=== PATIENT | female | born 1935 | race Caucasian/White ===

== ENCOUNTER 2016-05-15 10:07 | Emergency (ER) | payer OTHER ==
[~2016-05-15 10:07] MED LIST: ACETAMINOPHEN500 MG PO; ALENDRONATE SOD70 MG PO; CALCIUM W/VIT D PO; HYDROCHLOROTHIA25 MG PO; LEVOTHYROXINE100 MCG PO; LISINOPRIL10 MG PO; MAGNESIUM400 M1 PO; OMEPRAZOLE20 M1 PO; SIMVASTATIN40 MG PO; ST JOHNS WORT PO; VITAMIN B COMPLE1 PO; VITAMIN D-31000 UNIT PO
--- NOTE | 2016-05-15 10:55 | DIAGNOSTIC IMAGING REPORT ---
PROCEDURE: CT HEAD WITHOUT CONTRAST INDICATION: DIZZINESS TECHNIQUE: Axial CT images were acquired through the head. Coronal and sagittal reformations were created. COMPARISON: None. FINDINGS: Mild cerebral cortical atrophy. Moderate hypodensity in the periventricular and subcortical white matter. No intracranial hemorrhage or extraaxial fluid collections. Ventricles are normal in size, shape and position. There is no mass, mass effect or midline shift. The calvarium is intact. The paranasal sinuses and mastoid air cells are normally aerated. The extracranial soft tissues and orbits are normal. IMPRESSION: 1. No CT evidence of acute intracranial process. 2. Age related involutional and white matter changes. 3. Findings discussed with Dr. Riley at 10:[address] scans at this facility use dose modulation, iterative reconstruction, and/or weight-based dosing when appropriate to reduce radiation dose to as low as reasonably achievable.
--- NOTE | 2016-05-15 13:16 | ED CLINICAL REPORT ---
Clinical Report - Physicians/Mid Levels [facility] [address] [place] [address] 05/15/2016 10:09 Patient: ERICA NEUMANN Time Seen: 1010. Arrived- By ambulance. Historian- patient, EMS personnel and family. HISTORY OF PRESENT ILLNESS Chief Complaint: DIZZINESS and NEAR-SYNCOPE. Severity described as moderate at its maximum. When seen in the E.D., it was almost gone. Modifying factors- worsened by standing up. (sitting or laying down helps). Not described as a sense of rotation, falling or confusion. Not described as feeling off balance, faint or weak all over. Described as a sense of movement and feeling light-headed. This started at about 0400 and is still present but is better now. No nausea, vomiting, hearing loss, tinnitus or ear pain. (Pt states she started Sertraline about 3 days ago, and wonders if this is the cause of her sx.). Similar symptoms previously: None. Recent medical care: The patient was seen recently at another facility in a clinic. REVIEW OF SYSTEMS No headache, double vision, weakness, fainting episodes or head injury. No chest pain, palpitations, black stools, numbness or bloody stools. No fever, sore throat, cough, difficulty breathing or abdominal pain. No diarrhea, difficulty with urination, skin rash, enlarged lymph nodes or chills. No joint pain. No difficulty walking. All systems otherwise negative, except as recorded above. PAST HISTORY Problems: Gerd. Degenerative Joint Disease. Depression. Memory impairment. Elevated Cholesterol. Thyroid Disease. Additional Surgeries: Arm fracture . Hysterectomy. Medications: [facility] Mood Relaxer Oral. Aspirin EC Oral. Vit E-Vit C-Beta Carotene Oral. Magnesium Chloride Oral. Calcium + D Oral. Multi Complete Oral. Levothyroxine Sodium Oral. Simvastatin Oral (Tablet 40 mg) 1 tablet, daily. Omeprazole Oral 20 mg, daily. Lisinopril Oral (Tablet 10 mg) 1 tablet, daily. HCTZ. Alendronate Sodium Oral (Tablet Effervescent 70 mg) 1 tablet. Sertraline HCl Oral (Tablet 25 mg) 1 tablet, daily. Allergies: Darvon. SOCIAL HISTORY Never smoker. No alcohol use or drug use. ADDITIONAL NOTES The nursing notes have been reviewed. PHYSICAL EXAM Vital Signs: 05/15/2016 10:11 BP: 156/87. HR: 80. RR: 18. O2 saturation: 98%. Temp: 98.0 F. Have been reviewed. Appearance: Alert. No acute distress. Eyes: Pupils equal, round and reactive to light. No nystagmus. Extraocular movements normal. ENT: Normal ENT inspection. Moist mucous membranes. Neck: Normal inspection. CVS: Normal heart rate and rhythm. Heart sounds normal. Pulses normal. Respiratory: No respiratory distress. Breath sounds normal. Abdomen: Soft and nontender. Back: Normal inspection. No CVA tenderness. Skin: Skin warm and dry. Normal skin color. No rash. Normal skin turgor. Extremities: Extremities exhibit normal ROM. No lower extremity edema. Neuro: Alert. Oriented X 3. Mood/affect normal. Speech normal. Cranial nerves normal (as tested). No cerebellar findings. No motor deficit. No sensory deficit. LABS, X-RAYS, AND EKG EKG: EKG time: (1031). Normal sinus rhythm. Rate: 69. Normal P waves. Normal SHIVANI. Normal QRS complex. Normal axis. Normal QT and QTc. Non-specific ST segment / T wave abnormalities. Prior EKG unavailable. The study has been interpreted contemporaneously by me. The study has been independently viewed by me. The EKG appears to be a good tracing. Rhythm Strip #1: Time: (1028). Rate= 68. Normal sinus rhythm. Regular rhythm. Narrow QRS complexes. No ectopy. Conduction normal. Normal ST segments and T waves. The study was interpreted by me. CT Head: No acute changes. No bony abnormalities, no hemorrhage, no intracranial mass, no midline shift and no hydrocephalus. No atrophy. Head CT performed without contrast. The study was independently viewed by me, interpreted by the radiologist and contemporaneously by me and discussed with the radiologist. Prior studies were not available for comparison. Laboratory Tests: UA-Culture if indicated: (YESSENIA: 05/15/2016 12:05) ( MsgRcvd 05/15/2016 12:39) Final results Test Result Flag Units (Reference) URINE COLOR YELLOW URINE APPEARANCE CLEAR URINE GLUCOSE NEGATIVE (NEGATIVE) URINE BILIRUBIN NEGATIVE (NEGATIVE) URINE KETONE NEGATIVE (NEGATIVE) URINE SPECIFIC GRAVITY 1.010 (1.010-1.030) URINE PH 7.5 (5.0-8.0) URINE PROTEIN NEGATIVE (NEGATIVE) URINE UROBILINOGEN 0.2 EU/dL (0.2-1.0) URINE NITRITE NEGATIVE (NEGATIVE) URINE BLOOD TRACE-INTACT (NEGATIVE) URINE LEUK ESTERASE NEGATIVE (NEGATIVE) URINE RBC NONE SEEN rbc/hpf (0-1) URINE WBC 0-1 wbc/hpf (0-1) URINE EPITHELIAL CELLS NONE SEEN EPI/hpf (0-5) URINE BACTERIA NONE SEEN (NONE SEEN) URINE COMMENT CULT NOT INDICATED URINE CULTURES ARE SET-UP BASED ON THE FOLLOWING CRITERIA:POSITIVE NITRITEPOSITIVE LEUKOCYTE ESTERASEGREATER THAN 10 WHITE BLOOD CELLSMODERATE (2+) OR GREATER BACTERIA CBC w Diff: (YESSENIA: 05/15/2016 10:30) ( [facility] 05/15/2016 10:56) Final results Test Result Flag Units (Reference) WHITE BLOOD COUNT 4.3 L K/uL (4.5-11.5) RED BLOOD COUNT 4.03 M/uL (4.00-5.20) HEMOGLOBIN 12.6 gm/dL (12.0-16.0) HEMATOCRIT 37.7 % (36.0-46.0) MEAN CELL VOLUME 94 fL (80-100) MEAN CORPUSCULAR HGB 31 pg (26-34) MEAN CORPUSCULAR HGB CONC 33 g/dL (31-37) RED CELL DISTRIBUTION WIDTH 13.4 % (11.6-14.8) PLATELET COUNT 282 K/uL (150-400) NEUTROPHIL % 63.5 % (50-75) LYMPH % 21.9 L % (25-40) MONO % 11.9 % (3-14) EOSINOPHIL % 1.9 % (0-4) BASOPHIL % 0.8 % (0-2) BNP: (YESSENIA: 05/15/2016 10:30) ( [facility] 05/15/2016 11:22) Final results Test Result Flag Units (Reference) B-TYPE NATRIURETIC PEPTIDE 61.1 pg/ml (5-100) TSH: (YESSENIA: 05/15/2016 10:30) ( MsgRcvd 05/15/2016 11:14) Final results Test Result Flag Units (Reference) THYROID STIMULATING HORMONE 0.400 uIU/mL (0.30-3.74) CHEM 13 PANEL: (YESSENIA: 05/15/2016 10:30) ( MsgRcvd 05/15/2016 11:02) Final results Test Result Flag Units (Reference) GLUCOSE 110 mg/dL (70-110) BUN 23 H mg/dL (7-18) CREATININE 1.6 H mg/dL (0.6-1.3) Estimated GFR 32.96 mL/min Estimated GFR- 39.95 mL/min Note: Persistent reduction over 3 months in eGFR<60 mL/min/1.73 m2 defines CKD. Patients with eGFR values>=60 mL/min/1.73 m2 may also have CKD if evidence ofpersistent proteinuria. Additional information may be foundat www.kidney.org. SODIUM 141 mmol/L (136-145) POTASSIUM 3.6 mmol/L (3.5-5.1) CHLORIDE 103 mmol/L (98-107) CARBON DIOXIDE 27 mmol/L (21-32) CALCIUM 9.4 mg/dL (8.5-10.1) TOTAL PROTEIN 7.2 g/dL (6.4-8.2) ALBUMIN 3.9 g/dL (3.3-5.0) BILIRUBIN, TOTAL 0.4 mg/dL (0.0-1.0) ALKALINE PHOSPHATASE 53 U/L (46-116) AST (SGOT) 22 U/L (15-37) ALT (SGPT) 24 U/L (12-78) CPK 64 U/L (24-260) MAGNESIUM 1.7 L mg/dL (1.8-2.4) TROPONIN I <0.05 ng/mL (0.00-1.5) TROPONIN REFERENCE RANGE:<0.1 NEGATIVE0.1-1.5 INDETERMINANT>1.5 POSITIVE . Pulse Oximetry: 05/15/2016 10:11 O2 saturation: 98%. (FIO2 - room air). Interpretation: normal. PROGRESS AND PROCEDURES Course of Care: PT was worked up for her dizziness with labs and EKG. I did d/w pt that sx could be due to pt's new med, but that we must explore other potential causes, too. Pt's work-up was negative. No emergent condition identified. Patient and family counseled in person regarding the patient's stable condition, test results, diagnosis and need for follow-up. Concerns were addressed. Old medical records reviewed. Disposition: Discharged. Condition: stable and improved. CLINICAL IMPRESSION Acute dizziness Possible adverse drug reaction involving a SSRI (selective serotonin reuptake inhibitor) antidepressant. INSTRUCTIONS Drink plenty of fluids. (Your labs, urinalysis, and CT scan look good. There is no evidence of a serious cause of your symptoms. You can try going off of the Sertraline for the next several days, and see if things improve. If they do, the medicine may be the cause of the symptoms, and you may need to talk to your doctor about being on something else.). Warnings: GENERAL WARNINGS: Return or contact your physician immediately if your condition worsens or changes unexpectedly, if not improving as expected, or if other problems arise. Your Current Medications: STOP TAKING THE FOLLOWING MEDICATIONS: Sertraline HCl Oral : Tablet 25 mg, 1 tablet daily. CONTINUE TAKING THE FOLLOWING MEDICATIONS: Alendronate Sodium Oral : Tablet Effervescent 70 mg, 1 tablet. Aspirin EC Oral. Calcium + D Oral. HCTZ*. Levothyroxine Sodium Oral. Lisinopril Oral : Tablet 10 mg, 1 tablet daily. Magnesium Chloride Oral. Multi Complete Oral. Omeprazole Oral : 20 mg daily. Simvastatin Oral : Tablet 40 mg, [address] Mena Wort Mood Relaxer Oral. Vit E-Vit C-Beta Carotene Oral. Follow-up: Follow up with your doctor in seven days if not better. Understanding of the discharge instructions verbalized by patient and family. (Electronically signed by Shruti Riley MD 05/23/2016 13:54)
--- NOTE | 2016-05-15 13:16 | ED ORDER SUMMARY ---
..... Patient: ERICA NEUMANN OrderSheet [facility] VisitID: [id number] [place] [address] 80y, F Registration Date/Time: 05/15/2016 ORDER SHEET Weight: 68.0 kg (stated) Allergies: Darvon GENERAL ORDERS: Mold Closer Helper (Continuous) (10:05/15/2016 Tirso HUGHES) (Ack 10:19 CODYoerner) (10:33 KHoerner) CT Head wo Cont Urgent (10:05/15/2016 Tirso HUGHES) (Ack 10:19 Carlos) (11:08 LWhalen R.N.) UA-Culture if indicated Urgent (:05/15/2016 Tirso HUGHES) (Ack 10:19 Carlos) (15:25 LWhalen R.N.) Cardiac Panel Stat (10:05/15/2016 Tirso HUGHES) (Ack 10:19 Carlos) (11:08 LWhalen R.N.) BNP Urgent (10:05/15/2016 Tirso HUGHES) (Ack 10:19 Carlos) (11:08 LWhalen R.N.) TSH Urgent (10:05/15/2016 Tirso HUGHES) (Ack 10:19 Estephanianer) (11:08 LWhalen R.N.) Pulse oximeter (10:05/15/2016 Tirso HUGHES) (Ack 10:19 CODYoerner) (10:33 CODYoerner) EKG - ER Stat (:05/15/2016 Tirso HUGHES) (Ack 10:19 Carlos) (10:33 KHoerner) MEDICATION ORDERS: IV FLUIDS: IV NS : initial bolus 500 mL (1000 mL/hr), then 100 mL/hr (NOW) (:05/15/2016 Tirso HUGHES) (11:08 LWhalen R.N.) ORDER SHEET NOTES: [Electronically signed by Kam Mariee R.N. (15:26 05/15/2016)] [Electronically signed by Shruti Riley MD (13:54 05/23/2016)] [Electronically locked/signed by Kam Mariee R.N. (15:26 05/15/2016)]
--- NOTE | 2016-05-15 13:16 | ED ORDER SUMMARY ---
..... Patient: ERICA NEUMANN OrderSheet [facility] VisitID: [id number] [place] [address] 80y, F Registration Date/Time: 05/15/2016 ORDER SHEET Weight: 68.0 kg (stated) Allergies: Darvon GENERAL ORDERS: Tieing Machine Operator (Continuous) (10:05/15/2016 Tirso HUGHES) (Ack 10:19 CODYoerner) (10:33 KHoerner) CT Head wo Cont Urgent (10:05/15/2016 Tirso HUGHES) (Ack 10:19 Carlos) (11:08 LWhalen R.N.) UA-Culture if indicated Urgent (:05/15/2016 Tirso HUGHES) (Ack 10:19 Carlos) (15:25 LWhalen R.N.) Cardiac Panel Stat (10:05/15/2016 Tirso HUGHES) (Ack 10:19 Carlos) (11:08 LWhalen R.N.) BNP Urgent (10:05/15/2016 Tirso HUGHES) (Ack 10:19 Carlos) (11:08 LWhalen R.N.) TSH Urgent (10:05/15/2016 Tirso HUGHES) (Ack 10:19 Estephanianer) (11:08 LWhalen R.N.) Pulse oximeter (10:05/15/2016 Tirso HUGHES) (Ack 10:19 CODYoerner) (10:33 CODYoerner) EKG - ER Stat (:05/15/2016 Tirso HUGHES) (Ack 10:19 Carlos) (10:33 KHoerner) MEDICATION ORDERS: IV FLUIDS: IV NS : initial bolus 500 mL (1000 mL/hr), then 100 mL/hr (NOW) (:05/15/2016 Tirso HUGHES) (11:08 LWhalen R.N.) ORDER SHEET NOTES: [Electronically signed by Kam Mariee R.N. (15:26 05/15/2016)] [Electronically signed by Shruti Riley MD (13:54 05/23/2016)] [Electronically locked/signed by Kam Mariee R.N. (15:26 05/15/2016)]
--- NOTE | 2016-05-15 13:16 | ED NURSING NOTES ---
Clinical Report - Nurses [place] [address] [place] [address] 05/15/2016 10:09 Patient: ERICA NEUMANN TRIAGE Triage time 10:11 May 15 2016. Acuity: LEVEL 3. Chief Complaint: DIZZINESS, WEAKNESS and LIGHT HEADED. REGAN COMA SCORE: Regan Coma Scale: 15- eyes open spontaneously (4); best verbal response- oriented x 4 (5); best motor response- obeys commands (6). --10:36 Kam Mariee R.N. 10:11 05/15/16. BP: 156/87. HR: 80. RR: 18. O2 saturation: 98%. Temp: 98.0 F. Pain level now 0/10. --10:36 Kam Mariee R.N. Weight: 68 kg stated. Height/Length: 62 inches Per Patient. BMI: 27.4. --10:11 Kam Mariee R.N. Medications Sertraline HCl Oral (Tablet 25 mg) 1 tablet, daily. --10:13 Kam Mariee R.N. Alendronate Sodium Oral (Tablet Effervescent 70 mg) 1 tablet. --10:13 Kam Mariee R.N. HCTZ. --10:13 Kam Mariee R.N. Lisinopril Oral (Tablet 10 mg) 1 tablet, daily. --10:14 Kam Mariee R.N. Omeprazole Oral 20 mg, daily. --10:14 Kam Mariee R.N. Simvastatin Oral (Tablet 40 mg) 1 tablet, daily. --10:14 Kam Mariee R.N. Levothyroxine Sodium Oral. --10:15 Kam Mariee R.N. Multi Complete Oral. --10:15 Kam Mariee R.N. Calcium + D Oral. --10:15 Kam Mariee R.N. Magnesium Chloride Oral. --10:15 Kam Mariee R.N. Vit E-Vit C-Beta Carotene Oral. --10:15 Kam Mariee R.N. Aspirin EC Oral. --10:[address]. St Mena Wort Mood Relaxer Oral. --10:16 Kam Mariee R.N. Allergies Darvon. --10:37 Kam Mariee R.N. The following entry was struck by Kam Mariee R.N., 10:37 (05/15/16) Reason - other. <<STRICKEN ENTRY-- No Known Drug Allergy. --10:16 Kam Mariee R.N. --END STRIKE>>. History Arrived by EMS. Historian: patient. Accompanied by family. Primary physician (barbara). This started just prior to arrival. Patient was last known well (0700). She has had weakness. No ear pain, nausea, trouble walking, headache or vomiting. No fainting episodes or tinnitus. Treatment LABORER CHEMICAL PROCESSING: None. PAST MEDICAL HX: Immunizations: up-to-date. SOCIAL HX: Never smoker. No alcohol use or drug use. SELF HARM ASSESSMENT: A self harm assessment was performed. The patient answered "yes" to the question "Have you recently felt down, depressed, or hopeless?" and "no" to the question "Do you have thoughts of harming or killing yourself?". FALL RISK ASSESSMENT: Fall risk assessment completed. No fall risk identified. NUTRITIONAL RISK ASSESSMENT: The nutritional risk assessment revealed no deficiencies. FUNCTIONAL ASSESSMENT: Functional assessment: no impairments noted. LEARNING NEEDS ASSESSMENT: The learning needs assessment revealed no barriers. ABUSE ASSESSMENT: Abuse assessment: (yes) The patient was asked "Do you feel safe in your home?". SKIN INTEGRITY ASSESSMENT: Skin integrity risk assessment completed. No skin integrity risk identified. --10:36 Kam Mariee R.N. PROBLEMS: Gerd. Degenerative Joint Disease. Depression. Memory impairment. Elevated Cholesterol. Thyroid Disease. --10:34 Kam Mariee R.N. ADDITIONAL SURGERIES: Hysterectomy. --10:34 Kam Mariee R.N. Arm fracture . --10:35 Kam Mariee R.N. Interventions ID band on patient. --10:36 Kam Mariee R.N. PHYSICAL ASSESSMENT To room via stretcher. GENERAL / NEURO / PSYCH: Oriented X 4. Appears anxious. Alert. Speech within normal limits. HEENT: No facial asymmetry noted. Pupils equal, round and reactive to light. RESPIRATORY: Breath sounds within normal limits. Respirations not labored. CVS: Normal sinus rhythm noted. Capillary refill less than 2 seconds. GI / : Abdomen soft and nontender. SKIN: Skin is warm and dry. --10:38 Kam Mariee R.N. NURSING PROGRESS NOTES 10:28 05/15/2016 Site #1 started via IV in the right antecubital space with an 20g angiocath, with aseptic technique and good blood return; two attempts. Blood drawn: rainbow set. Labeled in the presence of the patient and sent to the lab. Saline lock flushed with 10 mL saline. --10:38 Kam Mariee R.N. shelter monitor, pulse oximeter and NIBP monitor placed on patient. Patient gowned. Head of bed elevated (90). Reassurance given. Call light placed in reach. Side rails up x 2. Bed placed in lowest position. Brakes of bed on. --10:38 Kam Mariee R.N. EKG time: (1031). EKG was ordered, performed by a frances and shown to the ED physician. --10:46 Esther Wilcox ER Tech1 10:58 05/15/2016 Started bag #1 1000 mL IV Fluids IV NS (Saline); at 500 mL/hr over 1 hour(s) via site #1 via dial-a-flow. Allergies verified and confirmed 5 rights. IV patency established. IV site checked: no pain, redness, or swelling. IV flushed thoroughly pre- and post-medication administration. --11:08 Kam Mariee R.N. Patient ID band checked: patient confirmed. Patient verbalized understanding. Catheterized urine collected with return of yellow-colored urine; sample sent to lab for urinalysis. Specimen labeled in the presence of the patient. --12:19 Kam Mariee R.N. 13:22 05/15/16. BP: 132/78. HR: 65. RR: 20. O2 saturation: 98%. Temp: 98.4 F. Pain level now: 0/10. 12:20 05/15/16. BP: 128/82. HR: 72. RR: 18. O2 saturation: 98%. 11:15 05/15/16. BP: 132/82. HR: 65. RR: 18. O2 saturation: 99%. --15:23 Kam Mariee R.N. 12:00 05/15/2016 IV Fluids IV NS Discontinued: bag #1 infused. Total amount infused: 1000 mL. IV patency established. IV site checked: no pain, redness, or swelling. IV flushed thoroughly. --15:25 Kam Mariee R.N. 13:25 05/15/2016 Site #1 removed upon discharge. Catheter intact. Pressure dressing applied. --15:25 Kam Mariee R.N. DISPOSITION / DISCHARGE Departure time: 1329May 15 2016. Condition at departure: improved. No learning barriers present. Discharge instructions provided and reviewed with the patient and family. Reviewed warnings. Reviewed medication(s). Treatments reviewed. Reviewed referrals. Patient and family verbalized understanding. Written instructions provided in Indonesian. The patient was discharged home and accompanied by family. She left the Emergency Department in a wheelchair and via private vehicle. Family member driving. --15:24 Kam Mariee R.N. 13:22 05/15/16. BP: 132/78. HR: 65. RR: 20. O2 saturation: 98%. Temp: 98.4 F. Pain level now: 0/10. --15:24 Kam Mariee R.N. Locked/Released at 05/15/2016 15:26 by Kam Mariee R.N.
--- NOTE | 2016-05-23 13:54 | ED DISCHARGE INSTRUCTIONS ---
Patient: ERICA NEUMANN General Instructions [facility] VisitID: [id number] [place] [address] 80y, F Registration Date/Time: 05/15/2016 Acute dizziness INSTRUCTIONS Drink plenty of fluids. (Your labs, urinalysis, and CT scan look good. There is no evidence of a serious cause of your symptoms. You can try going off of the Sertraline for the next several days, and see if things improve. If they do, the medicine may be the cause of the symptoms, and you may need to talk to your doctor about being on something else.). Warnings: GENERAL WARNINGS: Return or contact your physician immediately if your condition worsens or changes unexpectedly, if not improving as expected, or if other problems arise. Your Current Medications: STOP TAKING THE FOLLOWING MEDICATIONS: Sertraline HCl Oral : Tablet 25 mg, 1 tablet daily. CONTINUE TAKING THE FOLLOWING MEDICATIONS: Alendronate Sodium Oral : Tablet Effervescent 70 mg, 1 tablet. Aspirin EC Oral. Calcium + D Oral. HCTZ*. Levothyroxine Sodium Oral. Lisinopril Oral : Tablet 10 mg, 1 tablet daily. Magnesium Chloride Oral. Multi Complete Oral. Omeprazole Oral : 20 mg daily. Simvastatin Oral : Tablet 40 mg, [address] Mena Wort Mood Relaxer Oral. Vit E-Vit C-Beta Carotene Oral. Follow-up: Follow up with your doctor in seven days if not better. Understanding of the discharge instructions verbalized by patient and family. ADDITIONAL INFORMATION Dizziness [Uncertain Cause] Dizziness is a common symptom sometimes described as "lightheadedness" or feeling like you are going to faint. If it lasts for only a few seconds and is related to changes in position (such as getting up after lying or sitting for a long time), it is usually not a sign of anything serious. Dizziness that lasts for minutes to hours, or comes on for no apparent reason, may be a sign of a more serious problem (such as dehydration, a medicine reaction, disease of the heart or brain). Today's exam did not show an exact cause for your dizzy spell . Sometimes additional tests are required before a cause can be found. Therefore, it is important to follow up with your doctor if your symptoms continue. Home Care: 1) If a dizzy spell occurs and lasts more than a few seconds, lie down until it passes. If you are lying down, then you cannot hurt yourself by falling if you do faint. 2) Do not drive or operate dangerous equipment until the dizzy spells have stopped for at least 48 hours. 3) If dizzy spells occur with sudden standing, this may be a sign of mild dehydration. Drink extra fluids over the next few days. 4) If you recently started a new medicine or if you had the dose of a current medicine increased (especially blood pressure medicine), talk with the prescribing doctor about your symptoms. Dose adjustments may be needed. Follow Up with your doctor for further evaluation within the next seven days, if your symptoms continue. Get Prompt Medical Attention if any of the following occur: -- Worsening of your symptoms -- Fainting, headache or seizure -- Repeated vomiting -- Feeling like you or the room is spinning -- Chest, arm, neck, back or jaw pain -- Palpitations (the sense that your heart is fluttering or beating fast or hard) -- Shortness of breath -- Blood in vomit or stool (black or red color) -- Weakness of an arm or leg or one side of the face -- Difficulty with speech or vision You have been given the following additional information: Dizziness, Unk Cause (Electronically signed by Shruti Riley MD 05/23/2016 13:54)
--- NOTE | 2016-05-23 13:55 | ED MED RECONCILIATION SUMMARY ---
Patient: ERICA NEUMANN Medication Reconciliation Report [facility] VisitID: [id number] [address] [place] [address] 80y, F Registration Date/Time: 05/15/2016 Weight: 68.0 kg Height/Length: 62 in. BMI: 27.4 ALLERGIES: Darvon The patient's Home Medications are listed below: STOP TAKING THE FOLLOWING MEDICATIONS: Sertraline HCl Oral (25 mg) 1 tablet, daily CONTINUE TAKING THE FOLLOWING MEDICATIONS: Alendronate Sodium Oral (70 mg) 1 tablet Aspirin EC Oral Calcium + D Oral HCTZ Levothyroxine Sodium Oral Lisinopril Oral (10 mg) 1 tablet, daily Magnesium Chloride Oral Multi Complete Oral Omeprazole Oral 20 mg, daily Simvastatin Oral (40 mg) 1 tablet, daily St Mena Wort Mood Relaxer Oral Vit E-Vit C-Beta Carotene Oral The source(s) of the original Home Medication information: Not obtained. The following Medications were given to the patient in the Emergency Department: IV NS IV Fluids bolus 0, then 500 mL/hr, administered: 05/15/2016 10:58:00 AM The following Medications were prescribed to the patient: None.
--- NOTE | 2016-05-23 13:55 | ED MAR SUMMARY ---
..... Medication Administration Record [facility] [address] [place] [address] Patient: ERICA NEUMANN Visit ID: [id number] 80y, F Weight: 68.0 kg Height/Length: 62 in BMI: 27.4 ALLERGIES: Darvon Start 10:58 05/15/2016 Kam Mariee RSheliaN., Stop 12:00 05/15/2016 Kam Mariee RSheliaNShelia Medication Administered: IV NS (SALINE), Dose: IV Fluids over 1 hour(s), Rate: 500 mL/hr, Dispensed: 1000 mL bag, Site: #1 right AC. Medication Ordered: IV NS : initial bolus 500 mL (1000 mL/hr), then 100 mL/hr (NOW).
--- NOTE | 2016-05-23 13:55 | ED MAR SUMMARY ---
..... Medication Administration Record [facility] [address] [place] [address] Patient: ERICA NEUMANN Visit ID: [id number] 80y, F Weight: 68.0 kg Height/Length: 62 in BMI: 27.4 ALLERGIES: Darvon Start 10:58 05/15/2016 Kam Mariee RSheliaN., Stop 12:00 05/15/2016 Kam Mariee RSheliaNShelia Medication Administered: IV NS (SALINE), Dose: IV Fluids over 1 hour(s), Rate: 500 mL/hr, Dispensed: 1000 mL bag, Site: #1 right AC. Medication Ordered: IV NS : initial bolus 500 mL (1000 mL/hr), then 100 mL/hr (NOW).
--- NOTE | 2016-05-23 13:55 | ED MED RECONCILIATION SUMMARY ---
Patient: ERICA NEUMANN Medication Reconciliation Report [facility] VisitID: [id number] [address] [place] [address] 80y, F Registration Date/Time: 05/15/2016 Weight: 68.0 kg Height/Length: 62 in. BMI: 27.4 ALLERGIES: Darvon The patient's Home Medications are listed below: STOP TAKING THE FOLLOWING MEDICATIONS: Sertraline HCl Oral (25 mg) 1 tablet, daily CONTINUE TAKING THE FOLLOWING MEDICATIONS: Alendronate Sodium Oral (70 mg) 1 tablet Aspirin EC Oral Calcium + D Oral HCTZ Levothyroxine Sodium Oral Lisinopril Oral (10 mg) 1 tablet, daily Magnesium Chloride Oral Multi Complete Oral Omeprazole Oral 20 mg, daily Simvastatin Oral (40 mg) 1 tablet, daily [place] Mena Wort Mood Relaxer Oral Vit E-Vit C-Beta Carotene Oral The source(s) of the original Home Medication information: Not obtained. The following Medications were given to the patient in the Emergency Department: IV NS IV Fluids bolus 0, then 500 mL/hr, administered: 05/15/2016 10:58:00 AM The following Medications were prescribed to the patient: None.
== END 2016-05-15 13:30 | disposition home or self-care (01) ==
LOC: ED SRH 10:07
DX: R42 Dizziness and giddiness (principal); Z79.899 Other long term (current) drug therapy
CPT/HCPCS: 90004; 90100; 90616; 91320; 92610; 92720; 93140; 95059